=== PATIENT | female | born 1945 | race Asian ===

== ENCOUNTER 2017-09-22 22:46 | Inpatient (IN) | payer MEDICARE, MEDICAID ==
[~2017-09-22] VITALS: Ht 177.8 cm; Wt 57.6 kg
[2017-09-22 23:36] LABS: BASOPHIL % 0.1 % (0-2); PLATELET COUNT 195 x10^3mcL (130-400); RED CELL DISTRIBUTION WIDTH 13.1 % (11.5-14.5)
[2017-09-22 23:49] LABS: CALCIUM 8.8 mg/dL (8.5-10.1); CARBON DIOXIDE 28.1 mmol/L (21-32); CHLORIDE SERUM 103 mmol/L (98-107); CREATININE SERUM 0.8 mg/dL (0.6-1.0); GLUCOSE SERUM 128 mg/dL (74-106); POTASSIUM SERUM 4.2 mmol/L (3.5-5.1); SODIUM SERUM 140 mmol/L (136-145)
[2017-09-22 23:53] LABS: ALBUMIN 3.6 g/dL (3.4-5.0); ALKALINE PHOSPHATASE 75 U/L (46-116); ALT/SGPT 38 U/L (14-59); AST/SGOT 22 U/L (15-37); BILIRUBIN TOTAL 0.6 mg/dL (0.20-1.00); LIPASE 222 IU/L (73-393); TOTAL PROTEIN, SERUM 7.6 g/dL (6.4-8.2)
[2017-09-23] MEDS ORDERED: LOVASTATIN10 MG PO (01:17)
[2017-09-23 05:04] VITALS: BP 141/78
[2017-09-23 05:43] VITALS: BP 141/78
[2017-09-23 05:56] LABS: MAGNESIUM 2.3 mg/dL (1.8-2.4)
[2017-09-23 05:58] LABS: IRON 45 ug/dL (50-170); T3 TOTAL 1.1 ng/mL; TOTAL IRON BINDING CAPACITY 294 ug/dL (250-450)
[2017-09-23 06:07] LABS: FREE T4 1.16 ng/dL (0.76-1.46); FREE THYROXINE INDEX 2.5 ug/dL (1.4-4.5); T4(THYROXINE) 7.8 ug/dL (4.7-13.3)
[2017-09-23 07:45] LABS: RED BLOOD CELLS 3.65 M/mm3 (4.10-5.10)
[2017-09-23 10:07] VITALS: BP 134/64
[2017-09-23 13:12] VITALS: BP 141/54
[2017-09-23 17:52] VITALS: BP 122/55
[2017-09-23 20:48] LABS: UA SPECIFIC GRAVITY <=1.005 (1.005-1.035); microscopic required? YES; urine erythrocyte TRACE (NEGATIVE)
[2017-09-23 20:57] LABS: AMPHETAMINE QUAL UR NONE DETECTED (NEG <=1000)
[2017-09-23 21:08] VITALS: BP 118/64
[2017-09-24 05:39] VITALS: BP 136/62
[2017-09-24 06:36] LABS: BASOPHIL % 0.3 % (0-2); PLATELET COUNT 183 x10^3mcL (130-400); RED CELL DISTRIBUTION WIDTH 13.2 % (11.5-14.5)
[2017-09-24 07:01] LABS: CALCIUM 8.6 mg/dL (8.5-10.1); CARBON DIOXIDE 30.8 mmol/L (21-32); CHLORIDE SERUM 110 mmol/L (98-107); CREATININE SERUM 0.9 mg/dL (0.6-1.0); GLUCOSE SERUM 94 mg/dL (74-106); POTASSIUM SERUM 3.6 mmol/L (3.5-5.1); SODIUM SERUM 146 mmol/L (136-145)
[2017-09-24] MEDS ORDERED: LOSARTAN POTASS50 M1 PO (09:17)
[2017-09-24 09:40] VITALS: BP 136/54
[2017-09-24 14:00] VITALS: BP 139/44
[2017-09-24 17:10] VITALS: BP 130/70
[2017-09-24 20:33] VITALS: BP 123/54
[2017-09-25 05:28] VITALS: BP 143/57
[2017-09-25 06:18] LABS: BASOPHIL % 0.3 % (0-2); PLATELET COUNT 182 x10^3mcL (130-400); RED CELL DISTRIBUTION WIDTH 13.1 % (11.5-14.5)
[2017-09-25 06:34] LABS: CALCIUM 8.8 mg/dL (8.5-10.1); CARBON DIOXIDE 31.6 mmol/L (21-32); CHLORIDE SERUM 107 mmol/L (98-107); CREATININE SERUM 0.9 mg/dL (0.6-1.0); GLUCOSE SERUM 97 mg/dL (74-106); MAGNESIUM 1.9 mg/dL (1.8-2.4); PHOSPHOROUS 3.8 mg/dL (2.5-4.9); POTASSIUM SERUM 3.7 mmol/L (3.5-5.1); SODIUM SERUM 147 mmol/L (136-145)
[2017-09-25 09:30] VITALS: BP 162/67
[2017-09-25] MEDS ORDERED: LEVAQUIN750 MG PO (09:59)
[2017-09-25] MEDS ORDERED: FLA500 PO (10:04)
[2017-09-25] MEDS ORDERED: DITROPAN XL5 MG PO (10:12)
[2017-09-25 10:32] VITALS: BP 150/53
[2017-09-25 10:33] VITALS: BP 150/53
[2017-09-25] MEDS ORDERED: LAC PO (10:35)
== END 2017-09-25 11:37 | disposition home or self-care (01) | DRG 394 ==
LOC: ED 22:46 → DU 09-23 04:12 → MU 09-25 07:56
PROVIDERS: Emergency Medicine; ADMIT Family Medicine
DX: K55.9 Vascular disorder of intestine, unspecified (principal); E87.0 Hyperosmolality and hypernatremia; D68.69 Other thrombophilia; Z68.1 Body mass index [BMI] 19.9 or less, adult; K21.9 Gastro-esophageal reflux disease without esophagitis; I16.0 Hypertensive urgency; E78.5 Hyperlipidemia, unspecified; E11.51 Type 2 diabetes mellitus with diabetic peripheral angiopathy without gangrene; M71.21 Synovial cyst of popliteal space [Baker], right knee
CPT/HCPCS: 83880; 84439; 87046; 87046-59; C9113; J1885; J1956; J2405; J2765; J3490; J7030; J8597; Q0092